=== PATIENT | female | born 1950 | race Caucasian/White ===

== ENCOUNTER 2024-04-07 11:30 | Inpatient (IN) | payer MEDICARE ==
--- NOTE | 2024-04-07 12:23 | ED ---
Neuro HPI - General Source: patient Mode of arrival: ambulatory Limitations: no limitations <IvaBethanie - Last Filed: 04/07/24 12:22> - History of Present Illness Is the patient presenting with stroke symptoms?: No <Letitia Lawton - Last Filed: 05/03/24 08:31> - General Chief Complaint: Neuro Symptoms/Deficit Stated Complaint: Headache,AMS-sent by PCP Time Seen by Provider: 04/07/24 12:22 - History of Present Illness Initial Comments: 73-year-old female presenting with chief complaint of headache and episodes of confusion. Has been ongoing for the last 2 weeks. These episodes last for about 15 minutes at a time (Bethanie Enrique) 73-year-old female who presents to the emergency department with episodes of confusion and expressive aphasia. Started 2 weeks ago. states that she has had 3 episodes. Patient is conscious during these episodes but states that she all of a sudden will have difficulty getting out her words. The episode will last for approximately 10 to 15 minutes for her speech is slowed he denies dysarthria. Patient has had some intermittent headaches but states that these episodes are not associated with the headache. She had a headache which started earlier this morning. Described as a frontal headache without vision changes. She did not take anything for the pain yet. States that she normally does not have headaches. Reportedly had a TIA in the past. Admits to some difficulties with her balance but states that this has been more chronic over the past year. Denies vertiginous symptoms. No weakness which is lateralizing. No other alleviating, precipitating or modifying factors (Letitia Lawton) - Related Data Home Medications: Home Medications Medication Instructions Recorded Confirmed Famotidine [Pepcid] 20 mg PO HS 04/07/24 04/07/24 Fluticasone/Umeclidin/Vilanter 1 puff INHALATION RT-DAILY 04/07/24 04/07/24 [Trelegy Ellipta 200-62.5-25] Omeprazole [PriLOSEC] 20 mg PO AC-BID 04/07/24 04/07/24 Previous Rx's Medication Instructions Recorded Atorvastatin [Lipitor] 40 mg PO HS #30 tab 04/10/24 levETIRAcetam [Keppra] 500 mg PO Q12HR #60 tab 04/10/24 Allergies/Adverse Reactions: Allergies Allergy/AdvReac Type Severity Reaction Status Date / Time cocoa butter Allergy Rash/Hives Verified 04/07/24 18:51 mercury (elemental) Allergy Unknown Verified 04/07/24 18:51 codeine AdvReac Unknown Verified 04/07/24 18:51 Review of Systems ROS Other: All systems not noted in ROS Statement are negative. <EnriqueOsvaldoky - Last Filed: 04/07/24 12:22> ROS Other: All systems not noted in ROS Statement are negative. <JeredLetitia A - Last Filed: 05/03/24 08:31> ROS Statement: Those systems with pertinent positive or pertinent negative responses have been documented in the HPI. General Exam Limitations: no limitations <IvaAdrielbernardo - Last Filed: 04/07/24 12:22> General appearance: alert, in no apparent distress Head exam: Present: atraumatic, normocephalic, normal inspection Eye exam: Present: normal appearance, PERRL, EOMI. Absent: scleral icterus, c onjunctival injection, periorbital swelling ENT exam: Present: normal exam, mucous membranes moist Neck exam: Present: normal inspection. Absent: tenderness, meningismus, lymphadenopathy Respiratory exam: Present: normal lung sounds bilaterally. Absent: respiratory distress, wheezes, rales, rhonchi, stridor Cardiovascular Exam: Present: regular rate, normal rhythm, normal heart sounds. Absent: systolic murmur, diastolic murmur, rubs, gallop, clicks GI/Abdominal exam: Present: soft, normal bowel sounds. Absent: distended, tenderness, guarding, rebound, rigid Extremities exam: Present: normal inspection, full ROM, normal capillary refill. Absent: tenderness, pedal edema, joint swelling, calf tenderness Back exam: Present: normal inspection Neurological exam: Present: alert, oriented X3, CN II-XII intact Psychiatric exam: Present: normal affect, normal mood Skin exam: Present: warm, dry, intact, normal color. Absent: rash <JeanmariluLetitia Shakira - Last Filed: 05/03/24 08:31> - General Exam Comments Initial Comments: Visual Physical Exam Vital signs reviewed General: Well-appearing, nontoxic, no acute distress. Head: Normocephalic, atraumatic Eyes: PERRLA, EOMI ENT: Airway patent Chest: Nonlabored breathing Skin: No visual rash, normal skin tone Neuro: Alert and oriented 3 Musculoskeletal: No gross abnormalities (Bethanie Enrique) Stroke MDM <Bethanie Enrique - Last Filed: 04/07/24 12:22> - Lab Data Result diagrams: 04/08/24 03:11 04/08/24 03:11 <Letitia Lawton - Last Filed: 05/03/24 08:31> - Lab Data Lab Results 04/07/24 04/07/24 04/07/24 Range/Units 12:56 12:56 12:56 WBC 5.2 (3.8-10.6) k/uL RBC 4.63 (3.80-5.40) m/uL Hgb 12.7 (11.4-16.0) gm/dL Hct 38.8 (34.0-46.0) % MCV 83.9 (80.0-100.0) fL MCH 27.5 (25.0-35.0) pg MCHC 32.8 (31.0-37.0) g/dL RDW 14.6 (11.5-15.5) % Plt Count 370 (150-450) k/uL MPV 6.6 Immature Gran % (Auto) % Absolute Nucleated RBC % Neutrophils % 59 % Lymphocytes % 27 % Monocytes % 8 % Eosinophils % 3 % Basophils % 1 % Immature Gran # (0.00-0.04) X 10*3/uL Neutrophils # 3.0 (1.3-7.7) k/uL Lymphocytes # 1.4 (1.0-4.8) k/uL Monocytes # 0.4 (0-1.0) k/uL Eosinophils # 0.2 (0-0.7) k/uL Basophils # 0.0 (0-0.2) k/uL NRBC/100 WBC Diff (0.00-0.01) X 10*3/uL PT 10.5 (10.0-12.5) sec INR 0.9 (<1.2) APTT 27.0 (22.0-30.0) sec Sodium 134 L (137-145) mmol/L Potassium 4.3 (3.5-5.1) mmol/L Chloride 100 (98-107) mmol/L Carbon Dioxide 29 (22-30) mmol/L Anion Gap 5 mmol/L BUN 9 (7-17) mg/dL Creatinine 0.86 (0.52-1.04) mg/dL Est GFR (CKD-EPI) (>=60) Est GFR (CKD-EPI)AfAm 79 (>60 ml/min/1.73 sqM) Est GFR (CKD-EPI)NonAf 68 (>60 ml/min/1.73 sqM) BUN/Creatinine Ratio (12.00-20.00) Ratio Glucose 84 (74-99) mg/dL Calcium 9.4 (8.4-10.2) mg/dL Total Bilirubin 0.5 (0.2-1.3) mg/dL AST 33 (14-36) U/L ALT 27 (4-34) U/L Alkaline Phosphatase 91 (38-126) U/L Creatine Kinase 131 (30-135) U/L Troponin I (0.000-0.034) ng/mL Total Protein 6.9 (6.3-8.2) g/dL Albumin 4.0 (3.5-5.0) g/dL Triglycerides (0.00-149.00) mg/dL Cholesterol (0.00-200.00) mg/dL LDL Cholesterol, Calc (0.0-131.0) mg/dL VLDL Cholesterol, Calc (5.00-40.00) mg/dL HDL Cholesterol (40.00-60.00) mg/dL Cholesterol/HDL Ratio Ratio Vitamin B12 (200.0-944.0) pg/mL TSH (0.350-5.500) UIU/ML Urine Color Urine Appearance (Clear) Urine pH (5.0-8.0) Ur Specific [place] (1.001-1.035) Urine Protein (Negative) Urine Glucose (UA) (Negative) Urine Ketones (Negative) Urine Blood (Negative) Urine Nitrite (Negative) Urine Bilirubin (Negative) Urine Urobilinogen (<2.0) mg/dL Ur Leukocyte Esterase (Negative) Urine RBC (0-5) /hpf Urine WBC (0-5) /hpf Ur Squamous Epith Cells (0-4) /hpf Urine Mucus (None) /hpf 04/07/24 04/07/24 04/08/24 Range/Units 12:56 21:30 03:11 WBC 4.90 (3.8-10.6) k/uL RBC 4.18 (3.80-5.40) m/uL Hgb 11.4 L (11.4-16.0) gm/dL Hct 35.9 L (34.0-46.0) % MCV 85.9 (80.0-100.0) fL MCH 27.3 (25.0-35.0) pg MCHC 31.8 L (31.0-37.0) g/dL RDW 15.1 H (11.5-15.5) % Plt Count 327 (150-450) k/uL MPV 10.0 Immature Gran % (Auto) 0.40 % Absolute Nucleated RBC 0 % Neutrophils % 45.2 % Lymphocytes % 37.3 % Monocytes % 11.6 % Eosinophils % 4.5 % Basophils % 1.0 % Immature Gran # 0.02 (0.00-0.04) X 10*3/uL Neutrophils # 2.21 (1.3-7.7) k/uL Lymphocytes # 1.83 (1.0-4.8) k/uL Monocytes # 0.57 (0-1.0) k/uL Eosinophils # 0.22 (0-0.7) k/uL Basophils # 0.05 (0-0.2) k/uL NRBC/100 WBC Diff 0 (0.00-0.01) X 10*3/uL PT (10.0-12.5) sec INR (<1.2) APTT (22.0-30.0) sec Sodium (137-145) mmol/L Potassium (3.5-5.1) mmol/L Chloride (98-107) mmol/L Carbon Dioxide (22-30) mmol/L Anion Gap mmol/L BUN (7-17) mg/dL Creatinine (0.52-1.04) mg/dL Est GFR (CKD-EPI) (>=60) Est GFR (CKD-EPI)AfAm (>60 ml/min/1.73 sqM) Est GFR (CKD-EPI)NonAf (>60 ml/min/1.73 sqM) BUN/Creatinine Ratio (12.00-20.00) Ratio Glucose (74-99) mg/dL Calcium (8.4-10.2) mg/dL Total Bilirubin (0.2-1.3) mg/dL AST (14-36) U/L ALT (4-34) U/L Alkaline Phosphatase (38-126) U/L Creatine Kinase (30-135) U/L Troponin I <0.012 (0.000-0.034) ng/mL Total Protein (6.3-8.2) g/dL Albumin (3.5-5.0) g/dL Triglycerides (0.00-149.00) mg/dL Cholesterol (0.00-200.00) mg/dL LDL Cholesterol, Calc (0.0-131.0) mg/dL VLDL Cholesterol, Calc (5.00-40.00) mg/dL HDL Cholesterol (40.00-60.00) mg/dL Cholesterol/HDL Ratio Ratio Vitamin B12 (200.0-944.0) pg/mL TSH (0.350-5.500) UIU/ML Urine Color Colorless Urine Appearance Clear (Clear) Urine pH 6.0 (5.0-8.0) Ur Specific [place] 1.037 H (1.001-1.035) Urine Protein Negative (Negative) Urine Glucose (UA) Negative (Negative) Urine Ketones Trace H (Negative) Urine Blood Negative (Negative) Urine Nitrite Negative (Negative) Urine Bilirubin Negative (Negative) Urine Urobilinogen <2.0 (<2.0) mg/dL Ur Leukocyte Esterase Small H (Negative) Urine RBC <1 (0-5) /hpf Urine WBC 3 (0-5) /hpf Ur Squamous Epith Cells <1 (0-4) /hpf Urine Mucus Rare H (None) /hpf 04/08/24 04/08/24 Range/Units 03:11 03:11 WBC (3.8-10.6) k/uL RBC (3.80-5.40) m/uL Hgb (11.4-16.0) gm/dL Hct (34.0-46.0) % MCV (80.0-100.0) fL MCH (25.0-35.0) pg MCHC (31.0-37.0) g/dL RDW (11.5-15.5) % Plt Count (150-450) k/uL MPV Immature Gran % (Auto) % Absolute Nucleated RBC % Neutrophils % % Lymphocytes % % Monocytes % % Eosinophils % % Basophils % % Immature Gran # (0.00-0.04) X 10*3/uL Neutrophils # (1.3-7.7) k/uL Lymphocytes # (1.0-4.8) k/uL Monocytes # (0-1.0) k/uL Eosinophils # (0-0.7) k/uL Basophils # (0-0.2) k/uL NRBC/100 WBC Diff (0.00-0.01) X 10*3/uL PT (10.0-12.5) sec INR (<1.2) APTT (22.0-30.0) sec Sodium 137 (137-145) mmol/L Potassium 4.3 (3.5-5.1) mmol/L Chloride 102 (98-107) mmol/L Carbon Dioxide 25.9 (22-30) mmol/L Anion Gap 9.10 mmol/L BUN 14.2 (7-17) mg/dL Creatinine 1.0 (0.52-1.04) mg/dL Est GFR (CKD-EPI) 60 (>=60) Est GFR (CKD-EPI)AfAm (>60 ml/min/1.73 sqM) Est GFR (CKD-EPI)NonAf (>60 ml/min/1.73 sqM) BUN/Creatinine Ratio 14.20 (12.00-20.00) Ratio Glucose 85 (74-99) mg/dL Calcium 8.7 (8.4-10.2) mg/dL Total Bilirubin (0.2-1.3) mg/dL AST (14-36) U/L ALT (4-34) U/L Alkaline Phosphatase (38-126) U/L Creatine Kinase (30-135) U/L Troponin I (0.000-0.034) ng/mL Total Protein (6.3-8.2) g/dL Albumin (3.5-5.0) g/dL Triglycerides 117.00 (0.00-149.00) mg/dL Cholesterol 272.00 H (0.00-200.00) mg/dL LDL Cholesterol, Calc 199.2 H (0.0-131.0) mg/dL VLDL Cholesterol, Calc 23.40 (5.00-40.00) mg/dL HDL Cholesterol 49.40 (40.00-60.00) mg/dL Cholesterol/HDL Ratio 5.51 Ratio Vitamin B12 361.0 (200.0-944.0) pg/mL TSH 3.280 (0.350-5.500) UIU/ML Urine Color Urine Appearance (Clear) Urine pH (5.0-8.0) Ur Specific [place] (1.001-1.035) Urine Protein (Negative) Urine Glucose (UA) (Negative) Urine Ketones (Negative) Urine Blood (Negative) Urine Nitrite (Negative) Urine Bilirubin (Negative) Urine Urobilinogen (<2.0) mg/dL Ur Leukocyte Esterase (Negative) Urine RBC (0-5) /hpf Urine WBC (0-5) /hpf Ur Squamous Epith Cells (0-4) /hpf Urine Mucus (None) /hpf - Medical Decision Making I performed the quick note portion of this visit, electronically signed Bethanie Enrique PA-C (Bethanie Enrique) Was pt. sent in by a medical professional or institution ([facility], [facility], urgent care, hospital, or long term...) When possible be specific @ -No Did you speak to anyone other than the patient for history (EMS, parent, family, police, friend...)? What history was obtained from this source @ -Spoke with the for history Did you review nursing and triage notes (agree or disagree)? Why? @ -I reviewed and agree with nursing and triage notes Were old charts reviewed (outside hosp., previous admission, EMS record, old EK G, old radiological studies, urgent care reports/EKG's, long term records)? Report findings @ -No old charts were reviewed Differential Diagnosis (chest pain, altered mental status, abdominal pain women, abdominal pain men, vaginal bleeding, weakness, fever, dyspnea, syncope, headache, dizziness, GI bleed, back pain, seizure, CVA, palpatations, mental health, musculoskeletal)? @ -Differential CVA Ischemic stroke, hemorrhagic stroke, brain tumor, atypical migraine, Wernicke's encephalopathy, seizure, multiple sclerosis, meningitis, encephalitis, hypoglycemia, Guillain-Pacheco, electrolytes disturbance, myasthenia gravis.... This is not meant to be an all-inclusive list EKG interpreted by me (3pts min.). @ -Yes and demonstrates sinus rhythm with a rate of 71. WI interval 121. QRS 101. QTc of 412. No acute ST segment elevations or depressions X-rays interpreted by me (1pt min.). @ -None done CT interpreted by me (1pt min.). @ -yes and demonstrates no acute process U/S interpreted by me (1pt. min.). @ -None done What testing was considered but not performed or refused? (CT, X-rays, U/S, labs)? Why? @ -None What meds were considered but not given or refused? Why? @ -None Did you discuss the management of the patient with other professionals (professionals i.e. , PA, HIDE BUYER, lab, RT, psych nurse, outreach and education social worker, senior manufacturing technician, teacher, transportation security officer, casework supervisor)? Give summary @ -Spoke with [facility] for admission Was smoking cessation discussed for >3mins.? @ -No Was critical care preformed (if so, how long)? @ -No Were there social determinants of health that impacted care today? How? (Homelessness, low income, unemployed, alcoholism, drug addiction, transportation, low edu. Level, literacy, decrease access to med. care, skilled nursing, rehab)? @ -No Was there de-escalation of care discussed even if they declined (Discuss DNR or withdrawal of care, Hospice)? DNR status @ -No What co-morbidities impacted this encounter? (DM, HTN, Smoking, COPD, CAD, Cancer, CVA, ARF, Chemo, Hep., AIDS, mental health diagnosis, sleep apnea, morbid obesity)? @ -None Was patient admitted / discharged? Hospital course, mention meds given and route, prescriptions, significant lab abnormalities, going to OR and other pertinent info. @ -Upon arrival patient seen and evaluated. Thorough history and physical exam was performed. IV was established. Laboratory studies were conducted. Pat ient is sent for CT and CT angiography. Studies are within normal limits. Symptomology is concerning for TIA like phenomenon. I did recommend admission. Patient was agreeable to this. Spoke with [facility] for admission. Neurology will be placed on consult Undiagnosed new problem with uncertain prognosis? @ -Yes Drug Therapy requiring intensive monitoring for toxicity (Heparin, Nitro, Insulin, Cardizem)? @ -No Were any procedures done? @ -No Diagnosis/symptom? @ -Acute transient expressive aphasia, possible TIA Acute, or Chronic, or Acute on Chronic? @ -Acute Uncomplicated (without systemic symptoms) or Complicated (systemic symptoms)? @ -[Complicated Side effects of treatment? @ -No Exacerbation, Progression, or Severe Exacerbation? @ -No Poses a threat to life or bodily function? How? (Chest pain, [place], [place], pneumonia, PE, COPD, DKA, ARF, appy, cholecystitis, CVA, Diverticulitis, Homicidal, Suicidal, threat to staff... and all critical care pts) @ -Yes as patient demonstrates strokelike activity (Letitia Lawton) Past Medical History Past Medical History: GERD/Reflux History of Any Multi-Drug Resistant Organisms: None Reported Past Surgical History: No Surgical Hx Reported Past Psychological History: No Psychological Hx Reported Smoking Status: Never smoker Past Alcohol Use History: None Reported Past Drug Use History: None Reported <Bethanie Enrique - Last Filed: 04/07/24 12:22> Course Vital Signs 04/07/24 04/07/24 04/07/24 12:11 16:00 19:40 Temperature 98 F Pulse Rate 72 72 70 Pulse Rate [ Left] Respiratory 18 16 18 Rate Blood Pressure 149/65 141/62 132/70 Blood Pressure [Left Arm] O2 Sat by Pulse 99 97 99 Oximetry 04/07/24 20:00 Temperature 97.5 F L Pulse Rate Pulse Rate [ 73 Left] Respiratory 18 Rate Blood Pressure Blood Pressure 97/64 [Left Arm] O2 Sat by Pulse 96 Oximetry Disposition <Bethanie Enrique - Last Filed: 04/07/24 12:22> Is patient prescribed a controlled substance at d/c from ED?: No Time of Disposition: 18:08 Decision to Admit Reason: Admit from EC Decision Date: 04/07/24 Decision Time: 18:08 <Letitia Lawton - Last Filed: 05/03/24 08:31> Clinical Impression: Encephalopathy acute, Expressive aphasia, Migraine Disposition: ADMITTED IP TO THIS [facility] Condition: Fair
[2024-04-07 13:17] LABS: Basophils % (A) 1 %; Eosinophils # (A) 0.2 k/uL (0-0.7); Eosinophils % (A) 3 %; HCT 38.8 % (34.0-46.0); HGB 12.7 gm/dL (11.4-16.0); Lymphocytes # (A) 1.4 k/uL (1.0-4.8); Lymphocytes % (A) 27 %; MCH 27.5 pg (25.0-35.0); MCHC 32.8 g/dL (31.0-37.0); MCV 83.9 fL (80.0-100.0); Mean Platelet Volume 6.6; Monocytes # (A) 0.4 k/uL (0-1.0); Monocytes % (A) 8 %; Neutrophils % (A) 59 %; Platelet Count 370 k/uL (150-450); RBC 4.63 m/uL (3.80-5.40); RDW 14.6 % (11.5-15.5); WBC 5.2 k/uL (3.8-10.6)
[2024-04-07 13:26] LABS: INR 0.9 (<1.2)
[2024-04-07 13:27] LABS: Prothrombin Time 10.5 sec (10.0-12.5)
[2024-04-07 13:34] LABS: ALT 27 U/L (4-34); AST 33 U/L (14-36); African American GFR (CKD) 79 (>60 ml/min/1.73 sqM); Alkaline Phosphatase 91 U/L (38-126); Anion Gap 5 mmol/L; Blood Urea Nitrogen 9 mg/dL (7-17); Calcium 9.4 mg/dL (8.4-10.2); Carbon Dioxide 29 mmol/L (22-30); Chloride 100 mmol/L (98-107); Creatine Kinase 131 U/L (30-135); Glucose 84 mg/dL (74-99); Non-African American GFR(CKD) 68 (>60 ml/min/1.73 sqM); Potassium 4.3 mmol/L (3.5-5.1); Sodium 134 mmol/L (137-145); Total Bilirubin 0.5 mg/dL (0.2-1.3); Total Protein 6.9 g/dL (6.3-8.2)
--- NOTE | 2024-04-07 14:34 | CT ---
EXAMINATION TYPE: CT brain wo con CT DLP: 1437 mGycm, Automated exposure control for dose reduction was used. DATE OF EXAM: 04/07/2024 2:26 PM COMPARISON: None. CLINICAL INDICATION: Female, 73 years old with history of GOODEN, confusion, TECHNIQUE: Brain: Axial CT images of the brain were obtained with coronal and sagittal reformats created and rev iewed. Contrast used: None. Oral contrast used: None. FINDINGS: Brain: Extra-axial spaces: No abnormal extra-axial fluid collections. Ventricular system: Within normal limits Cerebral parenchyma: No acute intraparenchymal hemorrhage or mass effect. The tee-white junction is well differentiated. Cerebellum: Unremarkable. Mass effect: No evidence of midline shift. Intracranial vasculature: Atherosclerotic calcifications of the intracranial vessels. Soft tissues: Normal. Calvarium/osseous structures: No depressed skull fracture. Paranasal sinuses and mastoid air cells: Mild scattered paranasal sinus disease. Visualized orbits: Orbital contents are intact. IMPRESSION: No acute intracranial process.
--- NOTE | 2024-04-07 14:55 | CT ---
EXAMINATION TYPE: CT angio head neck CT DLP: 1437 mGycm, Automated exposure control for dose reduction was used. DATE OF EXAM: 04/07/2024 2:28 PM COMPARISON: CT same day. CLINICAL INDICATION: Female, 73 years old with history of GOODEN, confusion; PHH, TECHNIQUE: Axially acquired helical CT angiogram of the head and neck was obtained with contrast. Axi al images are supplemented with 3D reconstructions and MIP images which were post-processed at an in dependent workstation. NASCET criteria used. Contrast used: 65 cc [id number] Oral contrast used: None. FINDINGS: CTA HEAD: No evidence of acute intracranial hemorrhage, mass effect, or midline shift. The ventricles, sulci, a nd cisterns are unremarkable. The visualized portions of the internal carotid arteries, middle cerebral arteries, anterior cerebral arteries, and posterior cerebral arteries are patent. The basilar and vertebral arteries are patent. CTA NECK: Right Carotid System: The common carotid artery and external carotid artery are patent. The carotid bifurcation demonstrate s no evidence of hemodynamically significant stenosis. The remaining portions of the internal carotid artery demonstrate normal size without significant narrowing. Left Carotid System: The common carotid artery and external carotid artery are patent. The carotid bifurcation demonstrate s no evidence of hemodynamically significant stenosis. The remaining portions of the internal carotid artery demonstrate normal size without significant narrowing. Vertebral arteries are patent without evidence hemodynamically significant stenosis. Left dominant ve rtebral artery system. There is a three-vessel aortic arch. The origins of the great vessels are patent. No evidence of hemo dynamically significant stenosis. Upper thorax: Centrilobular emphysema changes. Right apical pleural scarring. Right apical pulmonary nodule measuring 7 mm series 501 image 22 and more inferiorly measuring 6 mm series 501 image 13. Pro minent AP window lymph node measuring 10 mm. IMPRESSION: 1. No evidence of dissection of the cervical internal carotid arteries or vertebral arteries or any e vidence of significant stenosis at the carotid bifurcations. 2. No evidence of intracranial high-grade stenosis or intracranial aneurysm. 3. Right upper lung pulmonary nodules. With prominent lymph nodes in the mediastinum partially visual ized. Nonemergent CT chest recommended for complete evaluation of the lungs.
[2024-04-07] MEDS ORDERED: ACETAMINOPHEN TAB 325 MG TAB PO PRN (18:09)
[2024-04-07] MEDS ORDERED: NALOXONE 0.4 MG/ML 1 ML VIAL IV PRN (18:09)
[2024-04-07] MEDS: KETOROLAC 15 MG/ML 1 ML VIAL IVP STA (19:33)
[2024-04-07] MEDS: METOCLOPRAMIDE 5 MG/ML 2 ML VIAL IVP STA (19:35)
[2024-04-07] MEDS: MAGNESIUM SULFATE-D5W PMX 1 GM in DEXTROSE/WATER 1 100ML.BAG IVPB ONE (19:36)
[2024-04-07] MEDS: diphenhydrAMINE 50 MG/ML 1 ML VIAL IVP STA (19:42)
[2024-04-07] MEDS: FAMOTIDINE 20 MG TAB PO SCH (21:45)
[2024-04-07 21:50] LABS: Appearance,Urine Clear (Clear); Bilirubin,Urine Negative (Negative); Blood,Urine Negative (Negative); Color,Urine Colorless; Glucose,Urine (UA) Negative (Negative); Ketones,Urine Trace (Negative); Leukocyte Esterase,Urine Small (Negative); Mucus,Urine Rare /hpf; Nitrite,Urine Negative (Negative); Protein,Urine Negative (Negative); RBC,Urine <1 /hpf (0-5); Specific Gravity,Urine 1.037 (1.001-1.035); Squamous Epithelial Cell,Urine <1 /hpf (0-4); Urobilinogen,Urine <2.0 mg/dL (<2.0); WBC,Urine 3 /hpf (0-5)
[2024-04-08] MEDS: PANTOPRAZOLE 40 MG TABLET PO SCH (07:38)
[2024-04-08] MEDS: SYMBICORT 80-4.5 MCG INHALER INHALATION SCH (08:33)
[2024-04-08] MEDS: IPRATROPIUM 0.5 MG/2.5 ML NEBU INHALATION SCH (08:35)
[2024-04-08 09:34] LABS: Basophils # (A) 0.05 X 10*3/uL (0.00-0.10); Eosinophils # (A) 0.22 X 10*3/uL (0.04-0.35); Eosinophils % (A) 4.5 %; HCT 35.9 % (37.2-46.3); HGB 11.4 g/dL (12.0-15.0); Lymphocytes # (A) 1.83 X 10*3/uL (0.90-5.00); Lymphocytes % (A) 37.3 %; MCH 27.3 pg (27.0-32.0); MCHC 31.8 g/dL (32.0-37.0); MCV 85.9 FL (80.0-97.0); Monocytes # (A) 0.57 X 10*3/uL (0.20-1.00); Monocytes % (A) 11.6 %; NRBC Per 100 WBC 0 X 10*3/uL (0.00-0.01); Neutrophils # (A) 2.21 X 10*3/uL (1.80-7.70); Neutrophils % (A) 45.2 %; Platelet Count 327 X 10*3/uL (140-440); RBC 4.18 X 10*6/uL (4.10-5.20); RDW 15.1 % (11.5-14.5)
[2024-04-08 11:05] LABS: Blood Urea Nitrogen 14.2 mg/dL (9.0-27.0); Calcium 8.7 mg/dL (8.7-10.3); Carbon Dioxide 25.9 mmol/L (21.6-31.8); Chloride 102 mmol/L (96-109); Glucose 85 mg/dL (70-110); Potassium 4.3 mmol/L (3.5-5.5); Sodium 137 mmol/L (135-145)
[2024-04-08] MEDS: ASPIRIN 81 MG PO SCH (11:12)
--- NOTE | 2024-04-08 12:08 | P.CNNES ---
History of Present Illness Consult date: 04/08/24 Requesting physician: Letitia Lawton Reason for Consult: acute expressive aphasia History of Present Illness: This is a 73-year-old woman who presented emergency department because of speech difficulty. Patient is at bedside who helps with some of the history. It seems for the last 2 weeks patient had 2-3 episode in which she knew what she wanted to say but could not get the words out and was slow responding. According to the she did not have any staring off episode or any jerking of the extremities. Patient stated that she knew exactly what she wanted to say but just not coming out and the episode would last for a few minutes. She did not have any tongue bite urinary incontinence or bowel incontinence. She does not have any focal weakness, numbness, visual disturbance, difficulty swallowi ng. She feels back to baseline. With these showed she would have a headache over the temporal region and aching pain maybe a 5 last few hours then resolve denies any photophobia phonophobia denies any history of migraine. Patient is not on any antiplatelet. No history of A-fib. She has a history of esophageal ulcer. She does have a history of TIA about 15 years ago in which she was typing something and had difficulty getting the words that she was typing. Denies tobacco, significant alcohol use or illicit drug use. Some of the workup during this hospital visit consisted of: CBC with differential and comprehensive metabolic panel is unremarkable CT of the head is reported as no acute intracranial process. I personally reviewed the CT and agree with the report CT angiography of the head and neck is reported as no evidence of dissection of cervical internal carotid artery or vertebral artery or any evidence of significant stenosis at the carotid bifurcation. No evidence of intracranial high-grade stenosis or intracranial aneurysm. Right upper lung pulmonary nodule. Nonemergent CT chest recommended for complete evaluation of the lung. Review of Systems The positive and negative as per HPI. Past Medical History Past Medical History: GERD/Reflux Additional Past Medical History / Comment(s): ulcerated esophagus History of Any Multi-Drug Resistant Organisms: None Reported Past Surgical History: No Surgical Hx Reported Additional Past Surgical History / Comment(s): exploratory laparatomy, colonoscopy Past Anesthesia/Blood Transfusion Reactions: Postoperative Nausea & Vomiting (PONV) Past Psychological History: No Psychological Hx Reported Smoking Status: Former smoker Past Alcohol Use History: None Reported Past Drug Use History: None Reported Medications and Allergies Home Medications Medication Instructions Recorded Confirmed Type Famotidine [Pepcid] 20 mg PO HS 04/07/24 04/07/24 History Fluticasone/Umeclidin/Vilanter 1 puff INHALATION RT-DAILY 04/07/24 04/07/24 History [Trelegy Ellipta 200-62.5-25] Omeprazole [PriLOSEC] 20 mg PO AC-BID 04/07/24 04/07/24 History Allergies Allergy/AdvReac Type Severity Reaction Status Date / Time cocoa butter Allergy Rash/Hives Verified 04/07/24 18:51 mercury (elemental) Allergy Unknown Verified 04/07/24 18:51 codeine AdvReac Unknown Verified 04/07/24 18:51 Physical Examination - Vital Signs Vital Signs: Vital Signs Temp Pulse Pulse Resp BP BP Pulse Ox 04/08/24 08:00 16 04/08/24 07:00 97.9 F 70 16 103/54 96 04/08/24 00:39 98.6 F 65 16 91/53 98 04/07/24 20:00 97.5 F L 73 18 97/64 96 04/07/24 19:40 70 18 132/70 99 04/07/24 16:00 72 16 141/62 97 04/07/24 12:11 98 F 72 18 149/65 99 Intake and Output 04/07/24 04/08/24 04/08/24 22:59 06:59 14:59 Intake Total 480 480 118 Output Total 750 Balance -270 480 118 Intake: Oral 480 480 118 Output: Urine 750 Other: Voiding Method Toilet Toilet # Voids 1 2 Weight 72.575 kg GENERAL: The patient is lying in bed and is not in acute distress. NEUROLOGICAL: Higher mental function: The patient is awake, alert, oriented to self, place and time. Patient is following commands. No aphasia and no neglect. Cranial nerves: The pupils are round, equal and reactive to light and accommodation. Visual grijalva are full to confrontation throughout. Extraocular movement is intact no nystagmus is noted. Facial sensation is normal to touch throughout. The facial strength is normal throughout. Hearing is normal bilaterally to hand rub. Tongue is midline and moved [id number] without any difficulty. No dysarthria is noted. Shoulder shrug is normal bilaterally. Motor: Gait is normal. The strength is 5 over 5 throughout. Normal tone and bulk. Cerebellum: Normal finger to nose heel to villarreal bilaterally. Sensation: Sensation is normal to touch throughout. Reflexes (right/left): 2+ throughout. Plantars are downgoing bilaterally. Results - Laboratory Findings CBC and BMP: 04/08/24 03:11 04/08/24 03:11 Abnormal Lab Findings: Abnormal Labs 04/07/24 04/07/24 04/08/24 12:56 21:30 03:11 Hgb 11.4 L Hct 35.9 L MCHC 31.8 L RDW 15.1 H Sodium 134 L Ur Specific [place] 1.037 H Urine Ketones Trace H Ur Leukocyte Esterase Small H Urine Mucus Rare H Assessment and Plan Assessment: This is a 73-year-old woman who presents because of difficulty getting her words out even though she knew what she wanted to say. She was also slowed during this process. No associated jerking of any extremity, drooling, urinary or bowel incontinence. No other associated focal deficit. She had 2-3 episodes in the last 2 weeks and was associated with a headache over the bilateral temporal region. Recurrent episode of expressive aphasia lasting few minutes and she is low during these episodes : probable transient ischemic attack. Rule out underlying seizure since patient is having recurrent episode. The head and CT angiography of the head and neck is unremarkable for ischemia or large vessel occlusion History of TIA about 15 years ago History of esophageal ulcer Plan: I started the patient on aspirin 81 mg daily. I will avoid dual antiplatelets especially with a history of esophageal ulcer. The patient on Lipitor 40 mg nightly for secondary stroke prophylaxis I ordered MRI of the brain, 2D echo, TSH, lipid panel, vitamin B12 Ordered routine EEG. Every 4 hours neurochecks Cardiac monitoring PT OT and GLASS [employer]ER are consulted Regarding the right upper lung pulmonary nodule and the recommendation for nonemergent CT chest seen on the CT angiography of the neck I will defer the workup to the primary team. Will defer the rest of the medical management to primary team and other specialist For DVT prophylaxis I started the patient on subcu heparin 5000 units every 12 hours The plan discussed with the patient and her is at bedside as well as her nurse Thank you for the consultation Time with Patient: Greater than 30
--- NOTE | 2024-04-08 13:25 | P.HPIM ---
History of Present Illness H&P Date: 04/08/24 History of present illness; patient 73-year-old lady with past medical history significant for COPD presented the ER because of episodes of confusion for the last 2 weeks. Patient stated for the last 2 weeks she has been noticing that at times she had a hard time saying words and gets confused, these episodes last for 10 to 15 minutes. During these episodes patient has no weakness of any extremity. There is no noticeable jerking movement of any extremity. There is no complaint loss of consciousness. Patient is complaining of headaches but those headaches are not related to these episodes. Denies any blurred vision. Patient has been complaining of ataxia. There is no current chest pain or shortness of breath. Denies any nausea, abdominal pain. Because of the symptoms, patient went to the ER Initial lab work done in the ER showed WBC 5.2, hemoglobin 12.7, platelet count 370, sodium 134, potassium 4.3, BUN 9, creatinine 0.86 UA negative for infection EKG done in the ER showed heart rate of71 , no ST segment elevation or depression seen, no T-wave inversions seen. CT head done showed no acute intracranial process CTA head and neck done showed no significant stenosis, aneurysm or thrombus in the intracranial circulation. Patient admitted to internal medicine service REVIEW OF SYSTEMS: CONSTITUTIONAL: No fever, no malaise, no fatigue. HEENT: No recent visual problems or hearing problems. Denied any sore throat. CARDIOVASCULAR: No chest pain, orthopnea, PND, no palpitations, no syncope. PULMONARY: No shortness of breath, no cough, no hemoptysis. GASTROINTESTINAL: No diarrhea, no nausea, no vomiting, no abdominal pain. NEUROLOGICAL: As mentioned above HEMATOLOGICAL: Denies any bleeding or petechiae. GENITOURINARY: Denies any burning micturition, frequency, or urgency. MUSCULOSKELETAL/RHEUMATOLOGICAL: Denies any joint pain, swelling, or any muscle pain. ENDOCRINE: Denies any polyuria or polydipsia. The rest of the 14-point review of systems is negative. PHYSICAL EXAMINATION: GENERAL: The patient is alert and oriented x3, not in any acute distress. Well developed, well nourished. HEENT: Pupils are round and equally reacting to light. EOMI. No scleral icterus. No conjunctival pallor. Normocephalic, atraumatic. No pharyngeal erythema. No thyromegaly. CARDIOVASCULAR: S1 and S2 present. No murmurs, rubs, or gallops. PULMONARY: Chest is clear to auscultation, no wheezing or crackles. ABDOMEN: Soft, nontender, nondistended, normoactive bowel sounds. No palpable organomegaly. MUSCULOSKELETAL: No joint swelling or deformity. EXTREMITIES: No cyanosis, clubbing, or pedal edema. NEUROLOGICAL: Gross neurological examination did not reveal any focal deficits. SKIN: No rashes. Assessment and plan Episodes of expressive aphasia TIA COPD Monitor vital signs Monitor CBC Monitor CMP Continue telemetry monitoring Ordered neurochecks Ordered 2D echo Ordered MRI brain Aspirin and Lipitor Ordered neurology consult Labs and medication were reviewed.. Continue same treatment. Continue with symptomatic treatment. Resume home medication. Monitor labs and vitals. DVT and GI prophylaxis. Further recommendations as per clinical course of the patient Dictation was produced using [employer] dictation software. please excuse any grammatical, word or spelling errors. Past Medical History Past Medical History: GERD/Reflux Additional Past Medical History / Comment(s): ulcerated esophagus History of Any Multi-Drug Resistant Organisms: None Reported Past Surgical History: No Surgical Hx Reported Additional Past Surgical History / Comment(s): exploratory laparatomy, colonoscopy Past Anesthesia/Blood Transfusion Reactions: Postoperative Nausea & Vomiting (PONV) Past Psychological History: No Psychological Hx Reported Smoking Status: Former smoker Past Alcohol Use History: None Reported Past Drug Use History: None Reported Medications and Allergies Home Medications Medication Instructions Recorded Confirmed Type Famotidine [Pepcid] 20 mg PO HS 04/07/24 04/07/24 History Fluticasone/Umeclidin/Vilanter 1 puff INHALATION RT-DAILY 04/07/24 04/07/24 History [Trelegy Ellipta 200-62.5-25] Omeprazole [PriLOSEC] 20 mg PO AC-BID 04/07/24 04/07/24 History Allergies Allergy/AdvReac Type Severity Reaction Status Date / Time cocoa butter Allergy Rash/Hives Verified 04/07/24 18:51 mercury (elemental) Allergy Unknown Verified 04/07/24 18:51 codeine AdvReac Unknown Verified 04/07/24 18:51 Physical Exam Vitals: Vital Signs Temp Pulse Pulse Resp BP BP Pulse Ox 04/08/24 08:00 16 04/08/24 07:00 97.9 F 70 16 103/54 96 04/08/24 00:39 98.6 F 65 16 91/53 98 04/07/24 20:00 97.5 F L 73 18 97/64 96 04/07/24 19:40 70 18 132/70 99 04/07/24 16:00 72 16 141/62 97 04/07/24 12:11 98 F 72 18 149/65 99 Intake and Output 04/07/24 04/08/24 04/08/24 22:59 06:59 14:59 Intake Total 480 480 118 Output Total 750 Balance -270 480 118 Intake: Oral 480 480 118 Output: Urine 750 Other: Voiding Method Toilet Toilet # Voids 1 2 Weight 72.575 kg Results CBC & Chem 7: 04/08/24 03:11 04/07/24 12:56 Labs: Abnormal Lab Results - Last 24 Hours (Table) 04/07/24 04/07/24 04/08/24 Range/Units 12:56 21:30 03:11 Hgb 11.4 L (12.0-15.0) g/dL Hct 35.9 L (37.2-46.3) % MCHC 31.8 L (32.0-37.0) g/dL RDW 15.1 H (11.5-14.5) % Sodium 134 L (137-145) mmol/L Ur Specific [place] 1.037 H (1.001-1.035) Urine Ketones Trace H (Negative) Ur Leukocyte Esterase Small H (Negative) Urine Mucus Rare H (None) /hpf Thrombosis Risk Factor Assmnt - Choose All That Apply Any of the Below Risk Factors Present?: Yes Each Factor Represents 1 point: Abnormal pulmonary function (COPD), Obesity (BMI >25) Each Risk Factor Represents 2 Points: Age 61-74 years Thrombosis Risk Factor Assessment Total Risk Factor Score: 4 Thrombosis Risk Factor Assessment Level: Moderate Risk
[2024-04-08 17:59] LABS: Chol/HDL Ratio 5.51 Ratio; LDL Cholesterol,Calculated 199.2 mg/dL (0.0-131.0)
[2024-04-08] MEDS: HEPARIN SODIUM,PORCINE 5,000 UNIT/ML 1 ML VIAL SQ SCH (19:49)
[2024-04-08] MEDS: ATORVASTATIN 40 MG TAB PO SCH (19:50)
--- NOTE | 2024-04-09 12:17 | P.PN ---
Subjective Progress Note Date: 04/09/24 I am following up with the patient and she feels about the same. Denies any new neurological issues. She decided she will wait until her workup is completed. Objective - Vital Signs Vital signs: Vital Signs Temp 98.4 F 04/09/24 07:00 Pulse 67 04/09/24 07:00 Resp 16 04/09/24 07:00 BP 119/62 04/09/24 07:00 Pulse Ox 96 04/09/24 07:00 FiO2 Intake & Output 04/08/24 04/09/24 04/09/24 18:59 06:59 18:59 Intake Total 474 480 118 Balance 474 480 118 Intake: Oral 474 480 118 Other: Voiding Method Toilet Toilet # Voids 3 - Exam GENERAL: The patient is lying in bed and is not in acute distress. NEUROLOGICAL: Higher mental function: The patient is awake, alert, oriented to self, place and time. Patient is following commands. No aphasia and no neglect. Cranial nerves: The pupils are round, equal and reactive to light and accommodation. Visual grijalva are full to confrontation throughout. Extraocular movement is intact no nystagmus is noted. Facial sensation is normal to touch throughout. The facial strength is normal throughout. Hearing is normal bilaterally to hand rub. Tongue is midline and moved [id number] without any d ifficulty. No dysarthria is noted. Shoulder shrug is normal bilaterally. Motor: Gait is normal. The strength is 5 over 5 throughout. Normal tone and bulk. Cerebellum: Normal finger to nose heel to villarreal bilaterally. Sensation: Sensation is normal to touch throughout. Reflexes (right/left): 2+ throughout. Plantars are downgoing bilaterally. Some of the workup during this hospital visit consisted of: CBC with differential and comprehensive metabolic panel is unremarkable Lipid panel is triglyceride 117, cholesterol 272, LDL is 199 and HDL is 49 Vitamin B12 is [address] of the head is reported as no acute intracranial process. I personally reviewed the CT and agree with the report CT angiography of the head and neck is reported as no evidence of dissection of cervical internal carotid artery or vertebral artery or any evidence of significant stenosis at the carotid bifurcation. No evidence of intracranial high-grade stenosis or intracranial aneurysm. Right upper lung pulmonary nodule. Nonemergent CT chest recommended for complete evaluation of the lung. - Labs CBC & Chem 7: 04/08/24 03:11 04/08/24 03:11 Labs: Abnormal Lab Results - Last 24 Hours (Table) 04/08/24 Range/Units 03:11 Cholesterol 272.00 H (0.00-200.00) mg/dL LDL Cholesterol, Calc 199.2 H (0.0-131.0) mg/dL Assessment and Plan Assessment: This is a 73-year-old woman who presents because of difficulty getting her words out even though she knew what she wanted to say. She was also slowed during this process. No associated jerking of any extremity, drooling, urinary or bowel incontinence. No other associated focal deficit. She had 2-3 episodes in the last 2 weeks and was associated with a headache over the bilateral temporal region. Recurrent episode of expressive aphasia lasting few minutes and she is low during these episodes : probable transient ischemic attack. Rule out underlying seizure since patient is having recurrent episode. The head and CT angiography of the head and neck is unremarkable for ischemia or large vessel occlusion Dyslipidemia History of TIA about 15 years ago History of esophageal ulcer Plan: I started the patient on aspirin 81 mg daily. I will avoid dual antiplatelets especially with a history of esophageal ulcer. The patient on Lipitor 40 mg nightly for secondary stroke prophylaxis Pending MRI of the brain, 2D echo, routine EEG. Every 4 hours neurochecks Cardiac monitoring PT OT and [employer] CLEAN[employer] P[employer]TER are consulted Regarding the right upper lung pulmonary nodule and the recommendation for nonemergent CT chest seen on the CT angiography of the neck I will defer the workup to the primary team. Will defer the rest of the medical management to primary team and other specialist For DVT prophylaxis on subcu heparin 5000 units every 12 hours The plan discussed with the patient and her is at bedside. Time with Patient: Less than 30
--- NOTE | 2024-04-09 13:43 | P.PN ---
Subjective Progress Note Date: 04/09/24 patient 73-year-old lady with past medical history significant for COPD presented the ER because of episodes of confusion for the last 2 weeks. Patient stated for the last 2 weeks she has been noticing that at times she had a hard time saying words and gets confused, these episodes last for 10 to 15 minutes. During these episodes patient has no weakness of any extremity. There is no noticeable jerking movement of any extremity. There is no complaint loss of consciousness. Patient is complaining of headaches but those headaches are not related to these episodes. Denies any blurred vision. Patient has been complaining of ataxia. There is no current chest pain or shortness of breath. Denies any nausea, abdominal pain. Because of the symptoms, patient went to the ER Initial lab work done in the ER showed WBC 5.2, hemoglobin 12.7, platelet count 370, sodium 134, potassium 4.3, BUN 9, creatinine 0.86 UA negative for infection EKG done in the ER showed heart rate of71 , no ST segment elevation or depression seen, no T-wave inversions seen. CT head done showed no acute intracranial process CTA head and neck done showed no significant stenosis, aneurysm or thrombus in the intracranial circulation. Patient admitted to internal medicine service 04/09. Patient seen and examined. Lipid panel reviewed, total cholesterol was 272, LDL was 199. Neurology eval the patient, ordered MRI brain and EEG. No further episodes of confusion while in the hospital. REVIEW OF SYSTEMS: CONSTITUTIONAL: No fever, no malaise,. CARDIOVASCULAR: No chest pain, no palpitations, no syncope. PULMONARY: No shortness of breath, no cough, GASTROINTESTINAL: No diarrhea, no nausea, no vomiting, no abdominal pain. NEUROLOGICAL: No headaches, no weakness, PHYSICAL EXAMINATION: GENERAL: The patient is alert and oriented x3, not in any acute distress. Well developed, well nourished. HEENT: Pupils are round and equally reacting to light. EOMI. No scleral icterus. No conjunctival pallor. Normocephalic, atraumatic. No pharyngeal erythema. No thyromegaly. CARDIOVASCULAR: S1 and S2 present. No murmurs, rubs, or gallops. PULMONARY: Chest is clear to auscultation, no wheezing or crackles. ABDOMEN: Soft, nontender, nondistended, normoactive bowel sounds. No palpable organomegaly. MUSCULOSKELETAL: No joint swelling or deformity. EXTREMITIES: No cyanosis, clubbing, or pedal edema. NEUROLOGICAL: Gross neurological examination did not reveal any focal deficits. SKIN: No rashes. Assessment and plan Episodes of expressive aphasia TIA COPD Monitor vital signs Monitor CBC Monitor CMP Continue telemetry monitoring Ordered neurochecks Ordered 2D echo Ordered MRI brain EEG ordered Continue aspirin and Lipitor Neurology following Labs and medication were reviewed.. Continue same treatment. Continue with symptomatic treatment. Resume home medication. Monitor labs and vitals. DVT and GI prophylaxis. Further recommendations as per clinical course of the patient Dictation was produced using [employer] dictation software. please excuse any grammatical, word or spelling errors. Objective - Vital Signs Vital signs: Vital Signs Temp 98.4 F 04/09/24 07:00 Pulse 67 04/09/24 07:00 Resp 16 04/09/24 07:00 BP 119/62 04/09/24 07:00 Pulse Ox 96 04/09/24 07:00 FiO2 Intake & Output 04/08/24 04/09/24 04/09/24 18:59 06:59 18:59 Intake Total 474 480 118 Balance 474 480 118 Intake: Oral 474 480 118 Other: Voiding Method Toilet Toilet # Voids 3 - Labs CBC & Chem 7: 04/08/24 03:11 04/08/24 03:11 Labs: Abnormal Lab Results - Last 24 Hours (Table) 04/08/24 Range/Units 03:11 Cholesterol 272.00 H (0.00-200.00) mg/dL LDL Cholesterol, Calc 199.2 H (0.0-131.0) mg/dL
--- NOTE | 2024-04-10 11:30 | CA ---
Transthoracic Echo Report Name: Precious Veliz Age: 73 Gender: F : 1950 Exam Date: 04/10/2024 08:29 Exam Location: [facility] Ht (in): 65 Wt (lb): 160 Ordering Physician: Jean Marie Santizo MD Attending/Referring Phys: Steam Hand Katiana Lawrence RDCS Procedure CPT: Indications: stroke Cardiac Hx: Technical Quality: Fair Contrast 1: Total Dose (mL): Contrast 2: Total Dose (mL): MEASUREMENTS (Male / Female) Normal Values 2D ECHO LV Diastolic Diameter PLAX 4.1 cm 4.2 - 5.9 / 3.9 - 5.3 cm LV Systolic Diameter PLAX 2.4 cm IVS Diastolic Thickness 0.9 cm 0.6 - 1.0 / 0.6 - 0.9 cm LVPW Diastolic Thickness 0.9 cm 0.6 - 1.0 / 0.6 - 0.9 cm LV Relative Wall Thickness 0.4 RV Internal Dim ED PLAX 3.2 cm LA Systolic Diameter LX 2.8 cm 3.0 - 4.0 / 2.7 - 3.8 cm LA Volume 44.9 cm??? 18 - 58 / 22 - 52 cm??? LA Volume Index 24.4 cm???/m??? 16 - 28 cm???/m??? M-MODE Aortic Root Diameter MM 3.1 cm LA Systolic Diameter MM 4.2 cm LA Ao Ratio MM 1.3 AV Cusp Separation MM 1.6 cm DOPPLER AV Peak Velocity 155.8 cm/s AV Peak Gradient 9.7 mmHg AV Mean Velocity 100.8 cm/s AV Mean Gradient 4.5 mmHg AV Velocity Time Integral 29.2 cm LVOT Peak Velocity 97.7 cm/s LVOT Peak Gradient 3.8 mmHg LVOT Velocity Time Integral 21.0 cm MV Area PHT 5.5 cm??? Mitral E Point Velocity 63.1 cm/s Mitral A Point Velocity 80.5 cm/s Mitral E to A Ratio 0.8 MV Deceleration Time 138.6 ms MV E' Velocity 6.7 cm/s Mitral E to MV E' Ratio 9.4 TR Peak Velocity 256.8 cm/s TR Peak Gradient 26.4 mmHg Right Ventricular Systolic Press 30.5 mmHg FINDINGS Left Ventricle Normal Left ventricular size, wall thickness, systolic function with no obvious regional wall motion abnormalities. Normal Left ventricular diastolic filling pattern. Left ventricular ejection fraction is estimated at 55-60 %. Right Ventricle Normal right ventricular size and function. Right ventricular systolic pressure within normal limits. Right Atrium Normal right atrial size. Left Atrium Normal left atrial size. Mitral Valve Structurally normal mitral valve. Mild mitral annular calcification. Mild mitral regurgitation. Aortic Valve Trileaflet aortic valve. No aortic valve stenosis or regurgitation. Tricuspid Valve Structurally normal tricuspid valve. Mild tricuspid regurgitation. Pulmonic Valve Structurally normal pulmonic valve. Pericardium No pericardial effusion. Aorta Normal size aortic root and proximal ascending aorta. CONCLUSIONS Normal LV function Mild mitral regurgitation Consider transesophageal echo to rule out cardiac source for thromboembolic CVA Previewed by: Dr. Desean Rock MD (Electronically Signed) Final Date: 10 April 2024 11:29
--- NOTE | 2024-04-10 14:59 | P.PN ---
Subjective Progress Note Date: 04/10/24 I am following up with the patient and she feels about the same. Denies any new neurological issues. Objective - Vital Signs Vital signs: Vital Signs Temp 98.0 F 04/10/24 07:00 Pulse 68 04/10/24 12:38 Resp 17 04/10/24 12:38 BP 112/69 04/10/24 07:00 Pulse Ox 98 04/10/24 07:00 FiO2 Intake & Output 04/09/24 04/10/24 04/10/24 18:59 06:59 18:59 Intake Total 118 118 Balance 118 118 Intake: Oral 118 118 Other: Voiding Method Toilet Toilet # Voids 3 2 3 - Exam GENERAL: The patient is lying in bed and is not in acute distress. NEUROLOGICAL: Higher mental function: The patient is awake, alert, oriented to self, place and time. Patient is following commands. No aphasia and no neglect. Cranial nerves: The pupils are round, equal and reactive to light and accommodation. Visual grijalva are full to confrontation throughout. Extraocular movement is intact no nystagmus is noted. Facial sensation is normal to touch throughout. The facial strength is normal throughout. Hearing is normal bilaterally to hand rub. Tongue is midline and moved [id number] without any difficulty. No dysarthria is noted. Shoulder shrug is normal bilaterally. Motor: Gait is normal. The strength is 5 over 5 throughout. Normal tone and bulk. Cerebellum: Normal finger to nose heel to villarreal bilaterally. Sensation: Sensation is normal to touch throughout. Reflexes (right/left): 2+ throughout. Plantars are downgoing bilaterally. Some of the workup during this hospital visit consisted of: CBC with differential and comprehensive metabolic panel is unremarkable Lipid panel is triglyceride 117, cholesterol 272, LDL is 199 and HDL is 49 Vitamin B12 is [address] of the head is reported as no acute intracranial process. I personally reviewed the CT and agree with the report CT angiography of the head and neck is reported as no evidence of dissection of cervical internal carotid artery or vertebral artery or any evidence of significant stenosis at the carotid bifurcation. No evidence of intracranial high-grade stenosis or intracranial aneurysm. Right upper lung pulmonary nodule. Nonemergent CT chest recommended for complete evaluation of the lung. 2D echo was reported as normal left ventricular function. Mild mitral regurgitation. - Labs CBC & Chem 7: 04/08/24 03:11 04/08/24 03:11 Assessment and Plan Assessment: This is a 73-year-old woman who presents because of difficulty getting her words out even though she knew what she wanted to say. She was also slowed during this process. No associated jerking of any extremity, drooling, urinary or bowel incontinence. No other associated focal deficit. She had 2-3 episodes in the last 2 weeks and was associated with a headache over the bilateral temporal region. Recurrent episode of expressive aphasia lasting few minutes and she is low during these episodes : probable transient ischemic attack. Rule out underlying seizure since patient is having recurrent episode. The head and CT angiography of the head and neck is unremarkable for ischemia or large vessel occlusion Dyslipidemia History of TIA about 15 years ago History of esophageal ulcer Plan: I started the patient on aspirin 81 mg daily. I will avoid dual antiplatelets especially with a history of esophageal ulcer. The patient on Lipitor 40 mg nightly for secondary stroke prophylaxis Pending MRI of the brain and routine EEG. Every 4 hours neurochecks Cardiac monitoring PT OT and MACHINE REPAIRER are consulted Regarding the right upper lung pulmonary nodule and the recommendation for nonemergent CT chest seen on the CT angiography of the neck I will defer the workup to the primary team. Will defer the rest of the medical management to primary team and other specialist For DVT prophylaxis on subcu heparin 5000 units every 12 hours Upon discharge recommend the patient to follow-up with a neurologist as an outpatient within 2 to 3 weeks. The plan discussed with the patient and her is at bedside. ADDENDUM: MRI of the brain is reported as scattered punctate hyperintensity likely on the basis of chronic white matter ischemic change with age-related atrophy. I personally reviewed the MRI and I agree there is no acute or subacute ischemia and there is no enhancement. Prelminary EEG is abnormal. The background is normal but patient has left temporal slowing. There is no discharges or seizure on the EEG. I spoke with the patient and it seems that the patient has been having syncopal episodes for the last 2 years and she stated that she will pass out for no reason or all and does not recall how she fell and states she did not trip that caused her fall it seems that she had multiple episodes in the last 2 years. She stated that her mother passed out once every 10 years and unknown cause. I am concerned about seizure especially with the temporal slowing and with her history of passing out with confusion and recently had 3 episode of speech difficulty with confusion. The patient and her were in agreement of starting Keppra 500 mg twice daily. Notified them about the side effects of the medication that can cause behavioral/mood he and some confusion and if he does then recommend switching the medication. Highly recommend the patient to obtain a repeat sleep deprived EEG as an outpatient and if possible a prolonged EEG or epilepsy monitoring unit as an out patient that should be coordinated by her outpatient neurologist. Was notified that per the [place] DMV because a seizure/syncopal episode to avoid driving for 6 months until no further episodes from the last event, avoid heights, avoid swimming assisted or using heavy machinery. Cross perspective I do not think this is a stroke or TIA and no need for antiplatelet from neurology perspective. Plan discussed in detail with the patient, her was at bedside, the primary attending nurse practitioner and her nurse. I spent a total of 60minutes on patient's care. Time with Patient: Greater than 30
[2024-04-10 16:01] VITALS: BP 132/66; PULSE 70; RESP 16; TEMP 98.4
--- NOTE | 2024-04-10 17:00 | MR ---
EXAMINATION TYPE: MR brain wo/w con DATE OF EXAM: 04/10/2024 COMPARISON: CT brain 04/07/2024 HISTORY: Aphasia, migraine, CVA. CONTRAST: Performed utilizing 7 mL intravenous Gadavist gadolinium contrast. TECHNIQUE: Multiplanar, multiecho imaging on a 3.0 Steph magnet is performed through the brain. Stud y is not performed within 24 hours of arrival to the hospital. The craniovertebral junction is normal. The pituitary is normal. Diffusion-weighted imaging is performed. No abnormal hyperintensity is present to suggest an acute i ntracranial infarct or acute ischemic change. There are scattered punctate periventricular areas of hyperintensity on T2 and Inversion Recovery michelle ghted sequences which are non-specific but can be related to microvascular ischemic changes. Ventricles and sulci are mildly prominent for the patient age. No suspicious enhancement IMPRESSION: 1. Scattered punctate hyperintensities likely on the basis of chronic white matter ischemic change wi th age-related atrophy.
[2024-04-10] MEDS: levETIRAcetam 500 MG TAB PO SCH (18:20)
--- NOTE | 2024-04-10 21:16 | EEG ---
ELECTROENCEPHALOGRAM REPORT CLINICAL HISTORY: This is a 73-year-old woman with recurrent speech difficulty with confusion. The video EEG is obtained to evaluate for seizure epileptiform activity. RELEVANT MEDICATION: The patient is not on any antiseizure medication. EEG TYPE: This is a routine 21-channel EEG with video using the 10/20 electrode placement system. DESCRIPTION: Wakefulness is only obtained. During awake state, the posterior-dominant rhythm consists of [id number] voltage of 9 to 9.5 Hz activity that is well modulated, well sustained. There is no physiological stage 2 sleep architecture. There is left temporal slowing. Interictal and ictal are none. ACTIVATION PROCEDURES: Photic stimulation and hyperventilation are not performed. CLINICAL INTERPRETATION: This is an abnormal routine EEG. The background is normal. There is focal slowing over the left temporal which is suggestive of focal cerebral dysfunction in the involved region. There is no epileptiform discharge or seizure on the EEG. I highly recommend a sleep-deprived EEG as outpatient and if possible prolonged EEG for further evaluation. Recommend following-up with neurologists as outpatient. Clinical correlation is recommended. EMERYL / IJN: [id number] / MTDD
--- NOTE | 2024-04-12 21:02 | P.DS ---
Providers Date of admission: 04/10/24 09:30 Attending physician: Tracey Sanchez Consults: 04/07/24 18:09 Consult Physician Urgent Consulting Provider: Sammie Tellez Reason/Comments: acute expressive aphasia Do you want consulting provider notified?: Yes Primary care physician: Luis Snyder [facility] Course: Final Diagnosis Episodes of expressive aphasia concern for TIA New onset seizure COPD Discharge Disposition Patient has been cleared for discharge home. Due to the recurrent episodes of aphasia and confusion. Neurology with concern for an acute onset of seizure and has recommended the patient to discharge on oral keppra 500 mg PO BID. Recommending to establish with a neurologist on discharge and repeat EEG/ prolonged EEG. Patient has also been started on atorvastatin daily. Hospital Course patient 73-year-old lady with past medical history significant for COPD presented the ER because of episodes of confusion for the last 2 weeks. Patient stated for the last 2 weeks she has been noticing that at times she had a hard time saying words and gets confused, these episodes last for 10 to 15 minutes. During these episodes patient has no weakness of any extremity. There is no noticeable jerking movement of any extremity. There is no complaint loss of consciousness. Patient is complaining of headaches but those headaches are not related to these episodes. Denies any blurred vision. Patient has been complaining of ataxia. There is no current chest pain or shortness of breath. Denies any nausea, abdominal pain. Because of the symptoms, patient went to the ER Initial lab work done in the ER showed WBC 5.2, hemoglobin 12.7, platelet count 370, sodium 134, potassium 4.3, BUN 9, creatinine 0.86 UA negative for infection EKG done in the ER showed heart rate of71 , no ST segment elevation or depression seen, no T-wave inversions seen. CT head done showed no acute intracranial process CTA head and neck done showed no significant stenosis, aneurysm or thrombus in the intracranial circulation. Patient admitted to internal medicine service 04/09. Patient seen and examined. Lipid panel reviewed, total cholesterol was 272, LDL was 199. Neurology eval the patient, ordered MRI brain and EEG. No further episodes of confusion while in the hospital. 04/10/2024 2D echo was reported as normal left ventricular function. Mild mitral regurgitation. MRI of the brain is reported as scattered punctate hyperintensity likely on the basis of chronic white matter ischemic change with age-related atrophy. Preliminary EEG is abnormal. The background is normal but patient has left temporal slowing. There is no discharges or seizure on the EEG. Neurology recommendations: Highly recommend the patient to obtain a repeat sleep deprived EEG as an outpatient and if possible a prolonged EEG or epilepsy monitoring unit as an outpatient that should be coordinated by her outpatient neurologist. Was notified that per the [place] DMV because a seizure/syncopal episode to avoid driving for 6 months until no further episodes from the last event, avoid heights, avoid swimming assisted or using heavy machinery. Please see medication reconciliation for a list of current medications. Thank you for allowing us to participate in the care of this patient. The impression and plan of care has been dictated by Keke Marion, Nurse Practitioner as directed. Dr. Joceline MD I have performed a history and physical examination and medical decision making of this patient, discussed the same with the dictator, and agree with the dictators assessment and plan as written, documented as a scribe. Based on total visit time, I have performed more than 50% of this visit. Patient Condition at Discharge: Fair Plan - Discharge Summary New Discharge Prescriptions: New levETIRAcetam [Keppra] 500 mg PO Q12HR #60 tab Atorvastatin [Lipitor] 40 mg PO HS #30 tab Continue Omeprazole [PriLOSEC] 20 mg PO AC-BID Famotidine [Pepcid] 20 mg PO HS Fluticasone/Umeclidin/Vilanter [Trelegy Ellipta 200-62.5-25] 1 puff INHALATION RT-DAILY Discharge Medication List Famotidine [Pepcid] 20 mg PO HS 04/07/24 [History] Fluticasone/Umeclidin/Vilanter [Trelegy Ellipta 200-62.5-25] 1 puff INHALATION RT-DAILY 04/07/24 [History] Omeprazole [PriLOSEC] 20 mg PO AC-BID 04/07/24 [History] Atorvastatin [Lipitor] 40 mg PO HS #30 tab 04/10/24 [Rx] levETIRAcetam [Keppra] 500 mg PO Q12HR #60 tab 04/10/24 [Rx] Follow up Appointment(s)/Referral(s): Luis Snyder, [Primary Care Provider] - 1-2 days Pelon Melissa DO [STAFF PHYSICIAN] - 1 Week (Neurology) Activity/Diet/Wound Care/Special Instructions: Follow up with a neurologist regarding F/U EEG and possible prolonged EEG Discharge Disposition: HOME SELF-CARE
== END 2024-04-10 18:53 | disposition home or self-care (01) | DRG 69 ==
LOC: SUPCPDRO 11:30 → EC 11:30 → 6NMEDSUR 18:10 → OBSVTOIN 04-10 09:30
PROVIDERS: ADMIT Internal Medicine; ATTEND Internal Medicine
DX: G45.9 Transient cerebral ischemic attack, unspecified (principal); R47.01 Aphasia; J44.9 Chronic obstructive pulmonary disease, unspecified; K21.9 Gastro-esophageal reflux disease without esophagitis; Z87.891 Personal history of nicotine dependence; R56.9 Unspecified convulsions; Z86.73 Personal history of transient ischemic attack (TIA), and cerebral infarction without residual deficits; Z79.899 Other long term (current) drug therapy
CPT/HCPCS: 36415; 70450; 70496; 70498; 70553; 80048; 80053; 80061; 81001; 82550; 82607; 84443; 84484; 85025; 85610; 85730; 93005; 93306; 94640; 95816; 96365; 96375; 99285

== ENCOUNTER → 2024-05-10 | Outpatient (CLI) | payer MEDICARE ==
[2024-05-10 10:23] LABS: African American GFR (CKD) 80 (>60 ml/min/1.73 sqM); Blood Urea Nitrogen 12 mg/dL (7-17); Non-African American GFR(CKD) 70 (>60 ml/min/1.73 sqM)
--- NOTE | 2024-05-10 11:00 | CT ---
EXAMINATION TYPE: CT chest w con CT DLP: 225.10 mGycm, Automated exposure control for dose reduction was used. DATE OF EXAM: 05/10/2024 10:55 AM COMPARISON: Chest radiograph 07/21/2022, CTA head and neck 04/07/2024 CLINICAL INDICATION:Female, 73 years old with history of R91.8 OTHER NONSPECIFIC ABNORMAL FINDING OF LUNG FIELD; PHH, abnormal finding in lungs found on CT .24. no symptoms TECHNIQUE: Multiple axial images were obtained through the chest following the administration of 100 cc of Isovue 300. . Coronal and sagittal reformats reviewed. FINDINGS: LUNGS/ PLEURA: Mild biapical pleural parenchymal scarring with right greater the left. Moderate centr ilobular emphysematous changes. Dependent bilateral lower lobe subsegmental atelectasis. Patchy opaci ties within the lingula. Groundglass 8 mm opacity redemonstrated within the right upper lobe (series 4, image 16). Solid 4 mm pulmonary nodule within the posterior aspect of the right upper lobe redemon strated (series 4, image 19). AIRWAY: Patent and unremarkable.. HEART: The heart is mildly increased in size.. No pericardial effusion. MEDIASTINUM: Enlarged mediastinal and left hilar lymph nodes with exams including a precarinal lymph node measuring 0.8 cm short axis (series 3, image 23), a AP window lymph node measuring 1.0 cm short axis (series 3, image 23), and a left hilar lymph node measuring 1.1 standard short axis (series 3, i mage 30). VASCULATURE: No aortic aneurysm. MUSCULOSKELETAL: No acute osseous abnormalities. Benign vertebral hemangioma involving the T7 vertebr al body. SOFT TISSUES/LYMPH NODES: Unremarkable. LOWER NECK: Tiny punctate hypodense nodule within the left thyroid lobe.. UPPER ABDOMEN: Moderate sized hiatal hernia. IMPRESSION: 1. Patchy opacities within the lingula concerning for pneumonia. 2. Redemonstration of right upper lobe pulmonary nodules measuring up to 8 mm. According to Fleischne r criteria, follow-up CT chest in 3-6 months is recommended. 3. Enlarged mediastinal and left hilar lymph nodes which may be reactive to #1. Attention on follow-u p exam. 4. Moderate COPD changes. 5. Moderate-sized hiatal hernia. [facility], , 05/10/2024 10:58 AM
== END | disposition home or self-care (01) ==
LOC: RADCTMAIN 09:38
PROVIDERS: ATTEND Internal Medicine Critical Care Medicine
DX: R91.8 Other nonspecific abnormal finding of lung field
CPT/HCPCS: 36415; 71260; 82565; 84520

== ENCOUNTER → 2024-11-21 | Outpatient (CLI) | payer MEDICARE ==
[2024-11-21 12:39] LABS: African American GFR (CKD) 80 (>60 ml/min/1.73 sqM); Blood Urea Nitrogen 10 mg/dL (7-17); Non-African American GFR(CKD) 69 (>60 ml/min/1.73 sqM)
--- NOTE | 2024-11-21 13:44 | CT ---
CT chest with contrast HISTORY: Syncope COMPARISON: 05/10/2024. TECHNIQUE: Multiple axial images are obtained through the chest without contrast. FINDINGS: There is moderate to marked emphysema with an upper lobe predominance. The right upper lobe densities/nodules and infiltrate in the lingula and lower lobe have cleared in t he interval. There is mild interstitial scarring in the lingula. There are a few scattered micronodul es but no new or suspicious lung nodule. There are bilateral hilar lymph nodes which are not enlarged by CT criteria and are likely reactive. The great vessels chest and heart are normal in size. There is again to the upper abdomen reveals moderate hiatal hernia. No focal osseous lesions are seen. IMPRESSION: 1. Resolution of previous infiltrates and nodules seen on the prior study. 2. Few scattered micronodules.. 3. No acute cardiopulmonary disease. 4. Moderate to marked emphysematous changes with an upper lobe predominance. 5. Moderate hiatal hernia. [facility], , 11/21/2024 1:41 PM
== END | disposition home or self-care (01) ==
LOC: RADCTMAIN 11:46
PROVIDERS: ATTEND Internal Medicine Critical Care Medicine
DX: J43.9 Emphysema, unspecified (principal); R91.8 Other nonspecific abnormal finding of lung field; K44.9 Diaphragmatic hernia without obstruction or gangrene
CPT/HCPCS: 82565; 84520; 71260; 36415; Q9967